=== PATIENT | female | born 1940 | race Caucasian/White ===

== ENCOUNTER 2018-09-30 08:33 | Emergency (ER) | payer BC, OTHER ==
[~2018-09-30] VITALS: Ht 160 cm; Wt 54.4 kg
[2018-09-30 10:08] VITALS: BP 144/75
== END 2018-09-30 12:20 | disposition home or self-care (01) ==
LOC: ER 08:33
DX: S76.011A Strain of muscle, fascia and tendon of right hip, initial encounter (principal); F03.90 Unspecified dementia, unspecified severity, without behavioral disturbance, psychotic disturbance, mood disturbance, and anxiety; W19.XXXA Unspecified fall, initial encounter; Y93.89 Activity, other specified; Y99.8 Other external cause status; Y92.89 Other specified places as the place of occurrence of the external cause
CPT/HCPCS: 72170; 72192; 73070; 93005